=== PATIENT | male | born 2005 | race Caucasian/White ===

== ENCOUNTER 2024-08-28 03:53 | Emergency (ER) | payer OTHER ==
[2024-08-28 04:01] VITALS: BP 162/97; PULSE 91; RESP 16; TEMP 98.8
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
== END 2024-08-28 04:15 | disposition left against medical advice (07) ==
LOC: EC 03:53
CPT/HCPCS: 99283